=== PATIENT | male | born 1995 | race Caucasian/White ===

== ENCOUNTER 2019-08-27 12:44 | Emergency (ER) | payer SELFPAY ==
[2019-08-27 13:04] VITALS: BP 127/78; PULSE 64; RESP 18; TEMP 37.4; O2SAT 99
--- NOTE | 2019-08-27 13:23 | ED.GENADULT ---
HPI - General Adult General Chief complaint: Nausea/Vomiting/Diarrhea Stated complaint: diarrhea/chills/fever Time Seen by Provider: 08/27/19 13:23 Source: patient Mode of arrival: ambulatory Limitations: no limitations History of Present Illness HPI narrative: 23-year-old male patient presents to the [facility] with complaints of cold symptoms for the past 5 days. Patient denies getting a flu shot this year. Patient states he has had fevers, body aches, chills, weakness, feeling overall very tired. Patient states he is also had a little bit of diarrhea but denies any abdominal pain or vomiting. Patient states he has been taking [id number] NyQuil, Mucinex, Tylenol, ibuprofen and drinking Gatorade to stay hydrated. Patient states he is feeling a little bit better than he did but continues to have the chills and fevers. Related Data Home Medications Medication Instructions Recorded Confirmed No Home Medications 08/27/19 08/27/19 Allergies Allergy/AdvReac Type Severity Reaction Status Date / Time Penicillins Allergy Hives Verified 08/27/19 13:16 Review of Systems Review of Systems: Narrative: CONSTITUTIONAL: Positive subjective fever, chills, body aches and sweats. EYES: Denies visual changes, redness, or discharge. ENT: Positive rhinorrhea, congestion, denies sore throat, or otalgia. CARDIOVASCULAR: Denies chest pain, palpitations, or edema. RESPIRATORY: Positive cough with dyspnea at times. GASTROINTESTINAL: Denies abdominal pain, nausea, vomiting, positive diarrhea. GENITOURINARY: Denies dysuria or hematuria. SKIN: Denies rash or itching. MUSCULOSKELETAL: Denies back pain, joint pain, or myalgia. NEUROLOGIC: Positive headache, denies numbness, or weakness. PSYCHIATRIC: Denies anxiety or depression. PMFSH Social History Social History Gender identity (if verbalized by the patient): Male Comments At the time of my signature I agree with nursing past medical history, surgical, social, and family history. There is no relevant family history pertinent to the presenting complaint. Exam Narrative: Exam Narrative: GENERAL: Well-appearing, well-nourished, and in no acute distress. HEAD: Normocephalic, atraumatic. EYES: PERRLA and EOMI. ENT: Nares clear, no rhinorrhea or epistaxis. Mucous membranes moist. NECK: Supple. No lymphadenopathy CHEST: Clear to auscultation. No respiratory distress. HEART: Regular rate and rhythm. No murmur heard. Normal peripheral pulses. ABDOMEN: Soft, nontender, nondistended, normal active bowel sounds. EXTREMITIES: Normal range of motion. No edema. SKIN: Warm, dry, no rash. NEURO: No focal deficits. Alert and oriented x3. Course Vital Signs Vital signs: Vital Signs Temperature 37.4 C 08/27/19 13:04 Pulse Rate 64 08/27/19 13:04 Respiratory Rate 18 08/27/19 13:04 Blood Pressure 127/78 08/27/19 13:04 Pulse Oximetry 99 08/27/19 13:04 Temperature 37.4 C 08/27/19 13:04 Pulse Rate 64 08/27/19 13:04 Respiratory Rate 18 08/27/19 13:04 Blood Pressure 127/78 08/27/19 13:04 Pulse Oximetry 99 08/27/19 13:04 Vital signs reviewed. Medical Decision Making Differential Diagnosis Differential Diagnosis: Differential diagnosis: Allergic rhinitis, chronic sinusitis, tonsillitis, acute sinusitis, infectious mononucleosis, seasonal influenza, pertussis, diphtheria, meningococcal disease, viral syndrome, viral bronchitis, RSV. Notified patient that he is outside of the timeframe to receive antivirals for influenza. Discussed with him that his influenza did come up negative today but I am pretty sure that he does have the flu given his symptoms. Discussed with patient that I want him to continue hydrating himself, taking [id number] Tylenol and ibuprofen for the fevers body aches and chills. Discussed with him that the flu typically peaks around a 5-7 and he should start feeling better after that if he
== END 2019-08-27 13:42 | disposition home or self-care (01) ==
PROVIDERS: Emergency Provider Nurse Practitioner Family
DX: J06.9 Acute upper respiratory infection, unspecified (principal); R05 Cough; R19.7 Diarrhea, unspecified
CPT/HCPCS: 87804; 99213; G0463

== ENCOUNTER 2020-05-15 12:50 | Emergency (ER) | payer SELFPAY ==
[2020-05-15 12:59] VITALS: BP 124/77; PULSE 96; RESP 18; TEMP 36.9; O2SAT 98
--- NOTE | 2020-05-15 13:36 | ED.URI ---
HPI - URI/Sore Throat General Chief Complaint: Skin/Abscess/Foreign Body Stated Complaint: throat abscess Time Seen by Provider: 05/15/20 13:25 Source: patient Mode of arrival: ambulatory Limitations: no limitations History of Present Illness HPI Narrative: This is a 24-year-old male that presents the emergency department for sore throat x3 days. Denies fever, dysphagia, cough, or congestion. Related Data Allergies Allergy/AdvReac Type Severity Reaction Status Date / Time Penicillins Allergy Hives Verified 05/15/20 13:01 Review of Systems Review of Systems: Narrative: CONSTITUTIONAL: Denies fever ENT: Reports sore throat. Denies rhinorrhea, congestion All systems reviewed & are unremarkable except as noted in HPI and below PMFSH Past Medical History Medical History (Updated 05/15/20 @ 13:41 by Jazzmine Rivas PA-C) No active medical problems Social History Social History (Updated 05/15/20 @ 13:39 by Jazzmine Rivas PA-C) Smoking status: Current every day smoker Gender identity (if verbalized by the patient): Male Exam Narrative: Exam Narrative: GENERAL: Well-appearing, well-nourished, and in no acute distress. HEAD: Normocephalic, atraumatic. EYES: EOMI. ENT: Nares clear, no rhinorrhea or epistaxis. Mucous membranes moist. Oropharynx with symmetric tonsillar hypertrophy and exudate, no other lesions. Bifid uvula is midline. No trismus. Bilateral TMs pearly bazan non-bulging NECK: Supple. No adenopathy or masses. CHEST: Clear to auscultation. No respiratory distress. No wheezes rales or rhonchi HEART: Regular rate and rhythm. No murmur heard. Normal peripheral pulses. EXTREMITIES: Normal range of motion. No edema. SKIN: Warm, dry, no rash. NEURO: No focal deficits. Alert and oriented x3. PSYCH: Normal mood and affect Course Vital Signs Vital signs: Vital Signs Temperature 98.4 F 05/15/20 12:59 Pulse Rate 96 05/15/20 12:59 Respiratory Rate 18 05/15/20 12:59 Blood Pressure 124/77 05/15/20 12:59 Pulse Oximetry 98 05/15/20 12:59 Temperature 98.4 F 05/15/20 12:59 Pulse Rate 96 05/15/20 12:59 Respiratory Rate 18 05/15/20 12:59 Blood Pressure 124/77 05/15/20 12:59 Pulse Oximetry 98 05/15/20 12:59 MDM - URI/Sore Throat MDM Narrative Medical decision making narrative: Patient presents the emergency department for sore throat x3 days. He is afebrile and nontoxic-appearing. No evidence of peritonsillar abscess on exam. His rapid strep swab was negative, but symptoms and exam are typical so I will start him on antibiotics. He is to follow-up with primary care doctor. He was given warnings to return to ER Lab Data Attestation: I reviewed the patient's lab results. Labs: Strep Screen Presumptive Negative *(Reference Range: Negative)* Critical Care Time Critical Care Time Critical Care Time: No Discharge Plan Discharge Clinical Impression: Pharyngitis Qualifiers: Pharyngitis/tonsillitis etiology: unspecified etiology Qualified Code(s): J02.9 - Acute pharyngitis, unspecified Patient Disposition: Home, Self-Care Condition: Stable Instructions: Antibiotic Form, Strep Throat (ED) Additional Instructions: Return to the emergency department for fever, difficulty swallowing, or any other concerns Remain well-hydrated, get plenty of rest. Take antibiotic as prescribed. Take Tylenol or Motrin [id number] for pain as needed. Lozenges or Chloraseptic spray for sore throat. Follow up with primary care doctor Prescriptions: New azithromycin 250 mg tablet See Rx Instructions .ROUTE .COMPLEX Qty: 6 RF: 0 Follow-up/Referrals: PHYSICIAN,[facility] [Primary Care Provider] - Dylon Love MD [Physician] - 3 Days
== END 2020-05-15 13:48 | disposition home or self-care (01) ==
PROVIDERS: Emergency Provider Emergency Medicine
DX: J02.9 Acute pharyngitis, unspecified (principal); F17.200 Nicotine dependence, unspecified, uncomplicated
CPT/HCPCS: 87081; 87880; 96372; 99283; J1100

== ENCOUNTER 2020-05-18 11:14 | Emergency (ER) | payer SELFPAY ==
[2020-05-18 11:16] VITALS: BP 141/38; PULSE 98; RESP 18; TEMP 36.6; O2SAT 100
--- NOTE | 2020-05-18 12:39 | ED.GENADULT ---
HPI - General Adult General Chief complaint: Unspecified Stated complaint: Sore Throat Time Seen by Provider: 05/18/20 12:09 Source: patient History of Present Illness HPI narrative: Patient is a 24 y/o male complaining of sore throat for about 6 days. He states that the soreness is mild and he is able to swallow. He was seen here a few days ago and started on Z pack. The antibiotic is making his soreness better. He states that had white patches on right side initially and now it's on both side. He is concerned about the spread of white patches to other side. He denies any fever or cough. Related Data Allergies Allergy/AdvReac Type Severity Reaction Status Date / Time Penicillins Allergy Hives Verified 05/18/20 11:19 Review of Systems Constitutional: Constitutional: Denies chills, Denies fever(s), Denies headache(s) and Denies weakness Eyes: Eyes: Denies blurry vision ENT: Denies headache(s), Denies neck pain and Reports sore throat Cardiovascular: Cardiovascular: Denies chest pain and Denies dyspnea Respiratory: Respiratory: Denies cough and Denies dyspnea Gastrointestinal: Gastrointestinal: Denies abdominal pain, Denies diarrhea, Denies nausea and Denies vomiting Genitourinary: Genitourinary: Denies hematuria and Denies dysuria Musculoskeletal: Musculoskeletal: Denies back pain and Denies neck pain Neurologic: Denies headache(s) and Denies weakness PMFSH Past Medical History Medical History No active medical problems Social History Social History Smoking status: Current every day smoker Gender identity (if verbalized by the patient): Male Exam Const: General: no acute distress and well developed Orientation/consciousness: oriented to person, oriented to place, oriented to time and patient oriented x3 HENMT: Head: normocephalic Ears: external ears normal General nose exam: Normal external nose present Throat: abnormal tonsil (white exudate) bilateral and no peritonsillar masses Eyes: General: appearance normal, both eyes and all related structures Conjunctivae: conjunctivae normal Neck: Neck: normal visual inspection and full ROM Chest: Chest palpation & inspection: normal inspection of the chest and no tenderness Resp: Effort & Inspection: normal respiratory effort Auscultation: clear to auscultation bilaterally Cardio: Rate: regular rate Rhythm: regular rhythm GI: GI Palp: No abdominal tenderness and Yes Soft to palpation Skin: General skin exam: normal color and turgor normal Neuro: General: oriented to person, oriented to place, oriented to time and patient oriented x3 Cognition (Neuro): normal cognition Extrem: General: normal to inspection, full ROM and no pedal edema Psych: Appearance: grossly normal Mental Status: mental status grossly normal Affect: normal affect Course Vital Signs Vital signs: Vital Signs Temperature 36.6 C 05/18/20 11:16 Pulse Rate 98 05/18/20 11:16 Respiratory Rate 18 05/18/20 11:16 Blood Pressure 141/38 H 05/18/20 11:16 Pulse Oximetry 100 05/18/20 11:16 Temperature 36.6 C 05/18/20 13:48 Pulse Rate 65 05/18/20 13:48 Respiratory Rate 16 05/18/20 13:48 Blood Pressure 126/82 05/18/20 13:48 Pulse Oximetry 99 05/18/20 13:48 Medical Decision Making Vital Signs Vital Signs: Vital Signs Temperature 36.6 C 05/18/20 11:16 Pulse Rate 98 05/18/20 11:16 Respiratory Rate 18 05/18/20 11:16 Blood Pressure 141/38 H 05/18/20 11:16 Pulse Oximetry 100 05/18/20 11:16 Temperature 36.6 C 05/18/20 13:48 Pulse Rate 65 05/18/20 13:48 Respiratory Rate 16 05/18/20 13:48 Blood Pressure 126/82 05/18/20 13:48 Pulse Oximetry 99 05/18/20 13:48 Lab Data Result diagrams: 05/18/20 12:50 05/18/20 12:50 Labs: Lab Results 05/18/20 05/18/20 05/18/20 Range/Units 12:50
[2020-05-18 12:56] LABS: Basophils Percent Auto 0.2 % (0.2-1.2); Eosinophils Percent Auto 0.1 % (0-4.4); Hemoglobin 14.7 g/dL (14.0-18.0); Immature Granulocyte Absolute 0.03 K/mm3 (0.00-0.031); Immature Granulocyte Percent A 0.4 % (0-0.5); Lymphocytes Absolute Auto 2.51 K/mm3 (0.9-3.2); Lymphocytes Percent Auto 30.8 % (18.3-44.2); Mean Corpuscular HGB Conc 33.4 g/dl (32-36); Mean Corpuscular Hemoglobin 28.7 pg (26-34); Mean Corpuscular Volume 85.9 fl (80-100); Mean Platelet Volume 10.8 fl (7.4-10.4); Monocytes Absolute Auto 0.8 K/mm3 (0.1-0.6); Monocytes Percent Auto 9.2 % (2.6-8.5); Neutrophils Absolute Auto 4.8 K/mm3 (1.3-6.7); Neutrophils Percent Auto 59.3 % (45.5-73.1); Platelet Count Result 173 k/mm3 (150-375); Red Blood Count 5.12 M/mm3 (4.6-6.20); Red Cell Distribution Width 12.8 % (11.5-14.5); White Blood Count 8.2 K/mm3 (4.5-10.0)
[2020-05-18 13:08] LABS: Alanine Aminotransferase 18 U/L (4-50); Albumin Level 4.2 g/dL (3.5-5.1); Alkaline Phosphatase 76 U/L (38-126); Anion Gap 7 mmol/L (8-16); Aspartate Amino Transferase 28 U/L (17-59); Bilirubin,Total 0.4 mg/dL (0.2-1.3); Blood Urea Nitrogen 13 mg/dL (9-20); Carbon Dioxide 28 mmol/L (22-30); Chloride 105 mmol/L (98-107); Estimated CRCL calculation 138 ml/min; Estimated Glomerular Filt Rate > 60; Glucose 98 mg/dL (75-110); Potassium 4.3 mmol/L (3.4-5.0); Sodium 140 mmol/L (137-145)
[2020-05-18 13:15] LABS: Atypical Lymphocytes Present; Platelet Estimate Adequate (Adequate)
[2020-05-18 13:18] LABS: Monoscreen Negative (Negative); Negative Monotest Control Negative (Negative); Positive Monotest Control Positive (Positive)
[2020-05-18 13:48] VITALS: BP 126/82; PULSE 65; RESP 16; TEMP 36.6; O2SAT 99
== END 2020-05-18 13:51 | disposition home or self-care (01) ==
PROVIDERS: Emergency Provider Emergency Medicine
DX: J02.9 Acute pharyngitis, unspecified (principal)
CPT/HCPCS: 36415; 80053; 85025; 86308; 87081; 87880; 99283

== ENCOUNTER 2023-12-26 15:16 | Emergency (ER) | payer SELFPAY ==
[2023-12-26 15:25] VITALS: BP 128/76; PULSE 98; RESP 18; TEMP 37.3; O2SAT 99
--- NOTE | 2023-12-26 15:53 | ED.DENTAL ---
HPI - Dental/Oral General Chief complaint: Dental/Oral Stated complaint: Dental Pain Time Seen by Provider: 12/26/23 15:55 Source: patient, RN notes reviewed and old records reviewed Mode of arrival: ambulatory Limitations: no limitations History of Present Illness HPI Narrative: Patient presents today with complaints of left lower dental pain. He reports that he has had some difficulties with his left bottom teeth for some time, about a week ago he had increased pain. Yesterday he noticed slight facial swelling. Today was having difficulty eating due to pain. He has not been taking any medication for this symptom. He has not sought help from a dentist. He is in no distress, denies any drooling or difficulty swallowing. Denies any fever, chills, sweats. Denies trauma Related Data Allergies Allergy/AdvReac Type Severity Reaction Status Date / Time Penicillins Allergy Hives Verified 12/26/23 15:21 Review of Systems Review of Systems: All systems reviewed & are unremarkable except as noted in HPI and below Constitutional: Constitutional: Reports no additional constitutional complaints ENT: Reports system reviewed and no additional complaints, except as documented Cardiovascular: Cardiovascular: Reports no additional cardiovascular complaints Respiratory: Respiratory: Reports no additional respiratory complaints Gastrointestinal: Gastrointestinal: Reports no additional gastrointestinal complaints [facility] Past Medical History Medical History No active medical problems Social History Social History Smoking status: Current every day smoker Gender identity (if verbalized by the patient): Male Comments At the time of my signature, I reviewed and agree with the nursing past medical, surgical, social, and family history. There is no relevant family history pertinent to the patient complaint. Exam Const: General: cooperative, no acute distress, alert and awake Orientation/consciousness: oriented to person, oriented to place and oriented to time HENMT: Head: normal to inspection Teeth and gingiva: abnormal tooth and associated gingiva (left lower gingiva with swelling and small amount yellow drainage) and fair dentition Throat: posterior oropharynx normal, tonsils normal and no postnasal drainage Neck: Lymphatic: no lymphadenopathy noted Resp: Effort & Inspection: normal respiratory effort and able to speak in complete sentences Auscultation: clear to auscultation bilaterally, no crackles, no rales, no rhonchi and no wheezes Cardio: Palpation: normal PMI Rate: regular rate Rhythm: regular rhythm Heart sounds: S1 normal heart sound present and S2 normal heart sound present Neuro: General: oriented to person, oriented to place and oriented to time Cranial nerves: Yes CN's II-XII intact bilaterally Psych: Appearance: grossly normal Thought process: Normal thought process present Insight: Good insight present (Psych) Judgement: Good judgement present (Psych) Course Course Level of Care: Express Care Visit Vital Signs Vital signs: Vital Signs Temperature 99.2 F 12/26/23 15:25 Pulse Rate 98 12/26/23 15:25 Respiratory Rate 18 12/26/23 15:25 Blood Pressure 128/76 12/26/23 15:25 Pulse Oximetry 99 12/26/23 15:25 Oxygen Delivery Room Air 12/26/23 15:25 Temperature 99.2 F 12/26/23 15:25 Pulse Rate 98 12/26/23 15:25 Respiratory Rate 18 12/26/23 15:25 Blood Pressure 128/76 12/26/23 15:25 Pulse Oximetry 99 12/26/23 15:25 Oxygen Delivery Room Air 12/26/23 15:25 Reviewed MDM - Dental/Oral MDM Narrative Medical decision making narrative: Nontoxic appearing patient, stable for outpatient treatment. Penicillin allergic, prescribed course of clindamycin. Naproxen as needed. Stressed importance of dental follow-up. No neck swelling, no drooling. Emergency
== END 2023-12-26 16:10 | disposition home or self-care (01) ==
PROVIDERS: Emergency Provider Nurse Practitioner Family
DX: K04.7 Periapical abscess without sinus (principal); F17.200 Nicotine dependence, unspecified, uncomplicated
CPT/HCPCS: 99213; G0463